=== PATIENT | female | born 1950 | race Caucasian/White ===

== ENCOUNTER 2019-06-01 22:25 | Emergency (ER) | payer MEDICARE ==
[~2019-06-01] VITALS: Ht 162.6 cm; Wt 117.9 kg
[~2019-06-01 22:25] MED LIST: ALBU90OI INH; ASPI325 PO; Albuterol17 G1 INH; Bactrim Ds Tab1 EACH PO; HYDR1TAB94 PO; Hygroton50 MG; Monodox100 MG PO; POTA10T PO; Phenergan/Code480 ML PO; Prednisone20 MG PO; SENN187 PO; SPACE CHAMBER1 EACH MC
[2019-06-01] MEDS ORDERED: Zovirax800 MG PO (23:38)
[2019-06-01] MEDS ORDERED: Prednisone20 MG PO (23:38)
[2019-06-01 23:50] LABS: Calcium, Ionized (POC) 1.06 mmol/L (1.10-1.46); Chloride (POC) 94 mmol/L (98-108); Creatinine (POC) 0.8 mg/dL (0.6-1.0); Glucose (ISTAT POC) 121 mg/dL (70-99); Potassium (POC) 2.9 mmol/L (3.5-5.5); Sodium (POC) 136 mmol/L (135-148); Total CO2 (POC) 31 mmol/L (21-32)
[2019-06-01] MEDS ORDERED: POTASSIUM CHLO20 ME1 PO (23:53)
== END 2019-06-02 00:46 | disposition home or self-care (01) ==
LOC: ER 22:25
PROVIDERS: Emergency Medicine
DX: B02.9 Zoster without complications (principal); E87.6 Hypokalemia
CPT/HCPCS: 80047; 85014; 99283; J7512

== ENCOUNTER 2021-01-31 03:01 | Emergency (ER) | payer MEDICARE ==
[~2021-01-31] VITALS: Ht 162.6 cm; Wt 117.9 kg
[~2021-01-31 03:01] MED LIST changes: +POTASSIUM CHLO20 ME1 PO; +Zovirax800 MG PO
[2021-01-31] MEDS ORDERED: METF500 PO (03:30)
[2021-01-31] MEDS ORDERED: GABA300 (03:30)
[2021-01-31] MEDS ORDERED: FISH OIL 1,2001 EAC7 (03:31)
[2021-01-31] MEDS ORDERED: Garlic500 MG (03:31)
[2021-01-31] MEDS ORDERED: [UNRECOGNIZED DRUG - OTHER] (03:32)
[2021-01-31 04:41] LABS: BASOPHILS ABSOLUTE AUTO 0.06 K/mm3 (0.00-0.23); BASOPHILS PERCENT AUTO 1 % (0-2); EOSINOPHILS ABSOLUTE AUTO 1.07 K/mm3 (0.00-0.68); EOSINOPHILS PERCENT AUTO 10 % (0-6); Hematocrit 45.4 % (33.0-51.0); Hemoglobin 15.1 g/dL (11.5-16.0); IMMATURE GRAN ABSOLUTE AUTO 0.03 K/mm3 (0.00-0.10); IMMATURE GRAN PERCENT AUTO 0 % (0-1); LYMPHOCYTES ABSOLUTE AUTO 3.54 K/mm3 (0.84-5.20); LYMPHOCYTES PERCENT AUTO 33 % (21-46); MONOCYTES ABSOLUTE AUTO 0.92 K/mm3 (0.16-1.47); MONOCYTES PERCENT AUTO 9 % (4-13); Mean Corpuscular HGB 30.6 pg (26.0-34.0); Mean Corpuscular HGB Conc 33.3 g/dL (31.5-36.5); Mean Corpuscular Volume 92 fL (80-100); Mean Platelet Volume 10.9 fL (9.1-12.4); NEUTROPHILS ABSOLUTE AUTO 5.22 K/mm3 (1.96-9.15); NEUTROPHILS PERCENT AUTO 48 % (41-73); Platelet Count 350 K/mm3 (150-400); RDW Coefficient Variation 13.2 % (11.7-14.2); RDW Standard Deviation 45.2 fL (35.1-46.3); Red Blood Cell Count 4.93 M/mm3 (3.80-5.20); White Blood Cell Count 10.84 K/mm3 (4.00-11.30)
[2021-01-31 04:56] LABS: Anion Gap 7 mmol/L (6-16); Blood Urea Nitrogen 18 mg/dL (8-24); CO2, Blood 28 mmol/L (21-32); Chloride, Blood 104 mmol/L (98-108); Creatinine, Blood 0.82 mg/dL (0.40-1.00); Glomerular Filtration Rate >60 (60-); Glucose, Blood 139 mg/dL (70-99); Potassium, Blood 3.2 mmol/L (3.5-5.5); Sodium, Blood 139 mmol/L (136-145)
[2021-01-31] MEDS ORDERED: VALIUM PO (05:30)
== END 2021-01-31 05:43 | disposition home or self-care (01) ==
LOC: ER 03:01
PROVIDERS: Emergency Medicine
DX: E87.6 Hypokalemia (principal); M79.604 Pain in right leg; F17.210 Nicotine dependence, cigarettes, uncomplicated; Z79.899 Other long term (current) drug therapy; Z79.84 Long term (current) use of oral hypoglycemic drugs
CPT/HCPCS: 36415; 80048; 85025; 93971; 99284-25; A9270

== ENCOUNTER 2021-01-31 17:48 | Emergency (ER) | payer MEDICARE ==
[~2021-01-31] VITALS: Ht 162.6 cm; Wt 117.9 kg
[~2021-01-31 17:48] MED LIST changes: +FISH OIL 1,2001 EAC7; +GABA300; +Garlic500 MG; +METF500 PO; +VALIUM PO; +[UNRECOGNIZED DRUG - OTHER]
== END 2021-01-31 20:51 | disposition home or self-care (01) ==
LOC: ER 17:48
DX: M79.604 Pain in right leg (principal); E11.9 Type 2 diabetes mellitus without complications; F17.210 Nicotine dependence, cigarettes, uncomplicated; Z79.84 Long term (current) use of oral hypoglycemic drugs; Z79.899 Other long term (current) drug therapy
CPT/HCPCS: 73562-RT; 99282-25

== ENCOUNTER 2021-03-07 12:32 | Emergency (ER) | payer MEDICARE ==
[~2021-03-07] VITALS: Ht 162.6 cm; Wt 113.4 kg
== END 2021-03-07 13:02 | disposition home or self-care (01) ==
LOC: ER 12:32
DX: M25.561 Pain in right knee (principal); E11.9 Type 2 diabetes mellitus without complications; F17.210 Nicotine dependence, cigarettes, uncomplicated; E66.9 Obesity, unspecified; Z68.41 Body mass index [BMI] 40.0-44.9, adult; Z79.899 Other long term (current) drug therapy; Z79.84 Long term (current) use of oral hypoglycemic drugs
CPT/HCPCS: 99283

== ENCOUNTER 2022-05-10 00:14 | Emergency (ER) | payer MEDICARE ==
[~2022-05-10] VITALS: Ht 162.6 cm; Wt 117.9 kg
[2022-05-10] MEDS ORDERED: GABA300 PO (01:07)
[2022-05-10] MEDS ORDERED: ATOR20 PO (01:07)
[2022-05-10] MEDS ORDERED: Hygroton50 MG PO (01:07)
[2022-05-10] MEDS ORDERED: METF500C PO (01:08)
[2022-05-10] MEDS ORDERED: POTCHL20ER PO (01:08)
[2022-05-10] MEDS ORDERED: Fenofibrate200 MG PO (01:08)
[2022-05-10 01:42] LABS: BASOPHILS ABSOLUTE AUTO 0.06 K/mm3 (0.00-0.23); BASOPHILS PERCENT AUTO 1 % (0-2); EOSINOPHILS ABSOLUTE AUTO 1.27 K/mm3 (0.00-0.68); EOSINOPHILS PERCENT AUTO 12 % (0-6); Hematocrit 40.9 % (33.0-51.0); Hemoglobin 13.6 g/dL (11.5-16.0); IMMATURE GRAN ABSOLUTE AUTO 0.02 K/mm3 (0.00-0.10); IMMATURE GRAN PERCENT AUTO 0 % (0-1); LYMPHOCYTES ABSOLUTE AUTO 3.34 K/mm3 (0.84-5.20); LYMPHOCYTES PERCENT AUTO 31 % (21-46); MONOCYTES ABSOLUTE AUTO 0.75 K/mm3 (0.16-1.47); MONOCYTES PERCENT AUTO 7 % (4-13); Mean Corpuscular HGB Conc 33.3 g/dL (31.5-36.5); Mean Corpuscular Volume 93 fL (80-100); Mean Platelet Volume 11.2 fL (9.1-12.4); NEUTROPHILS ABSOLUTE AUTO 5.23 K/mm3 (1.96-9.15); NEUTROPHILS PERCENT AUTO 49 % (41-73); Platelet Count 308 K/mm3 (150-400); RDW Coefficient Variation 13.4 % (11.7-14.2); RDW Standard Deviation 45.7 fL (35.1-46.3); Red Blood Cell Count 4.39 M/mm3 (3.80-5.20); White Blood Cell Count 10.67 K/mm3 (4.00-11.30)
[2022-05-10 02:10] LABS: Albumin, Blood 3.5 g/dL (3.4-5.0); Albumin/Globulin Ratio 0.9 (0.8-1.8); Bilirubin, Total 0.5 mg/dL (0.1-1.0); Bun/Creatinine Ratio 35.6 (12.0-20.0); Calcium, Blood 8.8 mg/dL (8.5-10.1); Creatinine, Blood 0.65 mg/dL (0.40-1.00); Globulin, Blood 3.8 g/dL (2.2-4.0); Potassium, Blood 3.6 mmol/L (3.5-5.5); Total Protein, Blood 7.3 g/dL (6.4-8.2)
[2022-05-10] MEDS ORDERED: Lasix20 MG PO (02:29)
== END 2022-05-10 02:53 | disposition home or self-care (01) ==
LOC: ER 00:14
PROVIDERS: Emergency Medicine
DX: R60.0 Localized edema (principal); M79.604 Pain in right leg; M79.605 Pain in left leg; E11.9 Type 2 diabetes mellitus without complications; E78.5 Hyperlipidemia, unspecified; F17.210 Nicotine dependence, cigarettes, uncomplicated; Z79.899 Other long term (current) drug therapy; Z79.84 Long term (current) use of oral hypoglycemic drugs
CPT/HCPCS: 80053; 85025; 85379; A9270

== ENCOUNTER 2022-11-03 08:43 | Emergency (ER) | payer MEDICARE ==
[~2022-11-03] VITALS: Ht 162.6 cm; Wt 113.4 kg
[~2022-11-03 08:43] MED LIST changes: +ATOR20 PO; +Fenofibrate200 MG PO; +GABA300 PO; +Hygroton50 MG PO; +Lasix20 MG PO; +METF500C PO; +POTCHL20ER PO
[2022-11-03 10:09] LABS: Albumin, Blood 3.4 g/dL (3.4-5.0); Albumin/Globulin Ratio 0.9 (0.8-1.8); Bilirubin, Total 0.4 mg/dL (0.1-1.0); Bun/Creatinine Ratio 41.6 (12.0-20.0); Calcium, Blood 9.3 mg/dL (8.5-10.1); Creatinine, Blood 0.63 mg/dL (0.40-1.00); Globulin, Blood 3.9 g/dL (2.2-4.0); Potassium, Blood 4.4 mmol/L (3.5-5.5); Total Protein, Blood 7.3 g/dL (6.4-8.2)
[2022-11-03 10:35] LABS: BASOPHILS ABSOLUTE AUTO 0.04 K/mm3 (0.00-0.23); BASOPHILS PERCENT AUTO 0 % (0-2); EOSINOPHILS ABSOLUTE AUTO 1.34 K/mm3 (0.00-0.68); EOSINOPHILS PERCENT AUTO 13 % (0-6); Hematocrit 43.5 % (33.0-51.0); Hemoglobin 14.1 g/dL (11.5-16.0); IMMATURE GRAN ABSOLUTE AUTO 0.03 K/mm3 (0.00-0.10); IMMATURE GRAN PERCENT AUTO 0 % (0-1); LYMPHOCYTES ABSOLUTE AUTO 3.32 K/mm3 (0.84-5.20); LYMPHOCYTES PERCENT AUTO 33 % (21-46); MONOCYTES ABSOLUTE AUTO 0.66 K/mm3 (0.16-1.47); MONOCYTES PERCENT AUTO 7 % (4-13); Mean Corpuscular HGB 29.6 pg (26.0-34.0); Mean Corpuscular HGB Conc 32.4 g/dL (31.5-36.5); Mean Corpuscular Volume 91 fL (80-100); Mean Platelet Volume 11.6 fL (9.1-12.4); NEUTROPHILS ABSOLUTE AUTO 4.66 K/mm3 (1.96-9.15); NEUTROPHILS PERCENT AUTO 46 % (41-73); Platelet Count 240 K/mm3 (150-400); RDW Coefficient Variation 13.3 % (11.7-14.2); RDW Standard Deviation 45.1 fL (35.1-46.3); Red Blood Cell Count 4.77 M/mm3 (3.80-5.20); White Blood Cell Count 10.05 K/mm3 (4.00-11.30)
[2022-11-03 11:00] LABS: Source, Urine Clean Catch
[2022-11-03 11:15] LABS: Bilirubin, Urine Neg (Neg); Blood, Urine Neg (Neg); Glucose Qualitative, Urine Neg (Neg); Ketones, Urine Neg (Neg); Leukocyte Esterase, Urine Neg (Neg); Nitrite, Urine Neg (Neg); Protein, Urine Neg (Neg); Specific Gravity, Urine 1.005 (1.003-1.022); Urobilinogen, Urine NORM (Normal)
[2022-11-03 11:18] LABS: Appearance, Urine Clear (Clear); Color, Urine Yellow (P-Yellow)
[2022-11-03] MEDS ORDERED: MECL25 PO (11:27)
[2022-11-03] MEDS ORDERED: ONDA4ODT MM (11:27)
[2022-11-03 11:30] VITALS: BP 123/45
== END 2022-11-03 12:17 | disposition home or self-care (01) ==
LOC: ER 08:43
PROVIDERS: Emergency Medicine
DX: R42 Dizziness and giddiness (principal); R11.0 Nausea; E11.9 Type 2 diabetes mellitus without complications; E78.5 Hyperlipidemia, unspecified; F17.210 Nicotine dependence, cigarettes, uncomplicated; Z79.899 Other long term (current) drug therapy; Z79.84 Long term (current) use of oral hypoglycemic drugs
CPT/HCPCS: 80053; 81003; 83690; 84484; 85025; 93005; 93010; 96374; 99284-25; A9270; J2405; J7030

== ENCOUNTER → 2024-08-02 | Outpatient (CLI) | payer MEDICARE ==
[~2024-08-02] MED LIST changes: +MECL25 PO; +ONDA4ODT MM
[2024-08-03 11:04] LABS: Night Urine Protein 10.9 mg/dL (0.0-11.9)
== END ==
LOC: LAB SHORT 21:00 → LAB 21:00
DX: E11.69 Type 2 diabetes mellitus with other specified complication (principal)
CPT/HCPCS: 84156

== ENCOUNTER → 2024-10-23 | Outpatient (CLI) | payer MEDICARE ==
[2024-10-23 14:14] LABS: Day Urine Protein 15.8 mg/dL (0.0-11.9)
== END ==
LOC: LAB 09:30 → LAB SHORT 09:30
DX: E11.69 Type 2 diabetes mellitus with other specified complication (principal)
CPT/HCPCS: 81050; 84156

== ENCOUNTER → 2025-01-06 | Outpatient (CLI) | payer MEDICARE ==
[2025-01-07 20:43] LABS: Day Urine Protein 9.9 mg/dL (0.0-11.9)
== END ==
LOC: LAB 23:00 → LAB SHORT 23:00
DX: E11.69 Type 2 diabetes mellitus with other specified complication (principal)
CPT/HCPCS: 84156